=== PATIENT | female | born 1960 | race Caucasian/White ===

== ENCOUNTER 2020-01-10 09:13 | Day surgery (SDC) | payer OTHER ==
[2020-01-05 16:22] VITALS: BMI 31.1
[2020-01-10] MEDS ORDERED: PROPOFOL 20 ML ONE ×2 (09:16)
[2020-01-10 10:26] VITALS: TEMP 97.6
[2020-01-10 10:45] VITALS: BP 128/69; PULSE 75
== END 2020-01-10 10:40 | disposition home or self-care (01) ==
LOC: FASU 09:13
PROVIDERS: ATTEND Internal Medicine Gastroenterology
PROC: 0DJD8ZZ Inspection of Lower Intestinal Tract, Via Natural or Artificial Opening Endoscopic (ICD-10-PCS; principal; 2020-01-10 10:00)
DX: Z86.010 Personal history of colon polyps (principal); K57.30 Diverticulosis of large intestine without perforation or abscess without bleeding; K64.4 Residual hemorrhoidal skin tags